=== PATIENT | female | born 1990 ===

== ENCOUNTER → 2022-09-02 | Outpatient (CLI) | payer BC ==
[2022-09-04 02:11] LABS: CHLAMYDIA TRACHOMATIS, NAA Negative (Negative)
== END | disposition home or self-care (01) ==
LOC: LAB 12:06 → LAB SHORT 12:06
PROVIDERS: Advanced Practice Midwife
DX: Z11.3 Encounter for screening for infections with a predominantly sexual mode of transmission (principal)
CPT/HCPCS: 87491; 87591